=== PATIENT | male | born 1970 | race Caucasian/White ===

== ENCOUNTER 2018-11-24 11:38 | Outpatient (CLI) | payer BC, SELFPAY ==
[2018-11-24 12:40] LABS: Abs Immature Grans 0.01 k/cumm (0.0-0.09); Absolute Basophil Count 0.02 k/cumm (0.0-0.2); Absolute Eosinophil Count 0.03 k/cumm (0.0-0.7); Absolute Lymphocyte Count 0.85 k/cumm (1.2-3.4); Absolute Monocyte Count 0.54 k/cumm (0.11-0.7); Absolute Neutrophil Count 4.06 k/cumm (1.2-6.7); Basophils % 0.4; Eosinophils % 0.5; HCT 46.1 % (40.0-50.0); HGB 15.8 g/dL (13.5-17.5); Immature Grans % 0.2; Lymphocytes % 15.4; Mean Corp. HGB Concentration 34.3 g/dL (32.0-36.0); Mean Corpuscular Hemoglobin 30.8 pg (27.0-33.0); Mean Corpuscular Volume 89.9 fL (80-95); Mean Platelet Volume 9.1 fL (8.0-11.0); Monocytes % 9.8; Neutrophils % 73.7; Platelet Count 229 x1000/uL (130-400); RBC 5.13 m/cumm (4.50-6.00); RBC Distribution Width 12.1 % (11.8-14.1); White Blood Cell Count 5.51 k/cumm (4.4-10.8)
[2018-11-24 15:12] LABS: ALT 37 U/L (12-78); AST 12 U/L (15-37); Albumin 4.2 g/dL (3.4-5.0); Alkaline Phosphatase 49 U/L (46-116); Anion Gap 10.2 mmol/L (3-11); BUN 9 mg/dL (7-18); Bilirubin, Total 0.7 mg/dL (0.2-1.0); CO2 26.8 mmol/L (21.0-32.0); CREATININE 1.01 mg/dL (0.70-1.30); Calcium 9.3 mg/dL (8.5-10.1); Chloride 104 mmol/L (98-107); Glucose 98 mg/dL (70-100); Potassium 4.3 mmol/L (3.5-5.1); Sodium 141 mmol/L (136-145); TSH 1.57 uIU/mL (0.36-3.74); Total Protein 7.1 g/dL (6.4-8.2)
== END 2018-11-24 11:58 ==
PROVIDERS: PCP Family Medicine; Visit Provider Internal Medicine
DX: F41.9 Anxiety disorder, unspecified (principal); R50.9 Fever, unspecified
CPT/HCPCS: 36415; 80053; 84443; 85025

== ENCOUNTER 2021-03-13 02:59 | Outpatient (CLI) | payer BC, SELFPAY ==
[2021-03-13 13:06] LABS: Source Nasal/Nares
[2021-03-13 17:11] LABS: COVID-19 PCR Negative (Negative)
== END 2021-03-13 03:00 | disposition home or self-care (01) ==
LOC: LBO 02:59
PROVIDERS: PCP Nurse Practitioner; Visit Provider Surgery
DX: Z20.822 Contact with and (suspected) exposure to COVID-19 (principal)
CPT/HCPCS: 87635

== ENCOUNTER 2021-03-15 08:34 | Day surgery (SDC) | payer BC, SELFPAY ==
--- NOTE | 2021-03-14 14:07 | W.ANESPRE ---
General Info Date of Service Date Performed: 03/15/21 Height: 6 ft Weight: 118.047 kg Body Mass Index (BMI): 35.3 Surgical Procedure: Operation Date: 03/15/21 10:20 Proposed Procedures Side Surgeon p Colonoscopy Mariana Rivera MD Meds Allergies and Home Medications Allergies Allergy/AdvReac Type Severity Reaction Status Date / Time Penicillins Allergy Hives Verified 03/15/21 08:46 Current Visit Medications: Current Medications Generic Name Dose Route Start Last Admin Trade Name Freq PRN Reason Stop Dose Admin Ringer's Solution 1,000 mls @ 80 mls/hr 03/15/21 06:00 IV 04/13/21 23:59 INFUSION EDYTA IV Miscellaneous Supplies 1 each 03/15/21 06:00 Iv Access IV 04/13/21 23:59 DIRECTED EDYTA Sodium Chloride 0 ml 03/15/21 06:00 Normal Saline Flush 10 Ml Syr IV 04/13/21 23:59 PRN PRN Sodium Chloride 0 ml 03/15/21 06:00 Normal Saline 10 Ml Vial IJ 04/13/21 23:59 DIRECTED PRN Sterile Water 0 ml 03/15/21 06:00 Water,Injection,Sterile 10 Ml Vial IJ 04/13/21 23:59 DIRECTED PRN PFSH Active Problems Active Problems: Problem Status Onset Code Hypertension I10 Family history of colon cancer Z80.0 Screening for colon cancer Z12.11 Anxiety F41.9 Medical History Active Problem List Family history of colon cancer (Acute) Screening for colon cancer (Acute) Anxiety (Chronic) Medical History Vasectomy evaluation Tobacco Smoking/Tobacco Use Status: Never Passive smoking exposure: Yes Alcohol Alcohol Intake: current Alcohol intake frequency: 3 or more drinks per day Alcohol type: beer Substance Use Substance use: Never Substance use type: does not use Vital Signs and Lab Results Vital Signs Most Recent Vital Signs in EMR: Temp Pulse Resp BP Pulse Ox 36.3 C L 85 16 125/87 99 03/15/21 08:47 03/15/21 08:47 03/15/21 08:47 03/15/21 08:47 03/15/21 08:47 Lab Results Blood Type / Crossmatch: No Data to Display Complete Blood Count: No Data to Display Complete Metabolic Panel: No Data to Display Liver Function Panel: No Data to Display Coagulation Panel: No Data to Display Cardiac Panel: No Data to Display Arterial Blood Gas: No Data to Display Venous Blood Gas: No Data to Display Pancreas Panel: No Data to Display Thyroid Panel: No Data to Display Infectious Disease: Coronavirus (COVID-19)(PCR) Negative (Negative) 03/13/21 11:25 03/13/21 Coronavirus 2019 Source Nasal/Nares 03/13/21 11:25 03/13/21 Blood Cultures: No Data to Display Toxicology Panel: No Data to Display Anesthesia Assessment and Plan Anesthesia History Personal History: No History of Anesthesia Complications Family History: No Family History of Anesthesia Complications Exercise Tolerance Exercise Tolerance: Metabolic Equivalents>4 Cardiac & Pulmonary Exam Cardiac Exam: Normal S1/S2 Heart Sounds Pulmonary Exam: Clear Bilateral Breath Sounds Implantable Cardiac Device Does patient have a Pacemaker or an ICD?: No Airway Exam Known Difficult Airway: No Mallampati Class: 2 Mouth Opening: Normal (> 3cm) Thyromental Distance: Greater than 3 cm Neck Range of Motion: Full ROM Neck Circumference: Normal Teeth Condition: Normal Dentition ASA Classification ASA Score: ASA 2 Emergency Case?: No NPO Status NPO Status: NPO Clears >2 hours, Solids >8 hours Anesthesia Plan Resuscitation Status: Full Code Anesthesia Technique: General Anesthesia Airway Planned: Natural Airway Monitors Used: Standard Monitors Preoperative Comments:: 50 yo male for screening colo. Sig PMHx: HTN, anxiety, never smoker,
--- NOTE | 2021-03-15 06:41 | W.COLOREPORT ---
Colonoscopy Report Date of procedure: 03/15/21 Pre-op diagnosis general: Colon Cancer screening and family history Post-op diagnosis procedure note: same (and mild diverticulosis and small rectal polyp) Procedure: Colonoscopy with polypectomy Surgeon: Mariana Rivera Anesthesia Type: General:No Airway (Michael Rosas CRNA) Estimated blood loss (mL): 3 Pathology: other (rectal polyp) Complications: None Disposition: same day Indications: Mr. Haley is a pleasant 50-year-old gentleman who is here today to discuss his first screening colonoscopy. He does have a family history of colon cancer in his mother who was in her late 60s early 70s. He does not take any medication and has not had any cardiovascular disease that has been diagnosed. He does have high blood pressure today. He feels that that is due to stress as he is currently going through a divorce. We did discuss that he needs to cut down on his caffeine intake as well as his alcohol intake and this may also help his blood pressure. I did recommend that he check his blood pressure or by one of the blood pressure cuffs and check it for the next week. If it continues to be high then he needs to follow-up with his primary care physician. The colonoscopy and the prep were discussed with him in detail and he wishes to proceed Risks, benefits and complications have been reviewed. Complications include but are not limited to bleeding, pain, perforation, missed small lesion/polyp, sore throat, aspiration and adverse reaction to the medications. Questions were entertained and answered to their satisfaction and they wished to proceed. No guarantees were given or implied. Proceed with colonoscopy under sedation Prep: Miralax/Dulcolax Procedure Start Time: 09:43 Procedure End Time: 10:03 Retraction Time: 11 minutes Findings: small rectal polyp mild diverticulosis Procedure Description: After informed consent was obtained the patient was taken to the procedure room and placed in a left decubitous position. Monitors were applied and a time out was done. The patients name, date of , procedure, allergies to medications and metal in their body was reviewed. The patient was then sedated. Once sedated and comfortable a rectal exam was done. External exam was normal. Internal exam revealed a normal sphincter tone and no palpable masses. The prostate felt smooth. The scope was then introduced and retro-flexed. No internal hemorrhoids, polyps or masses were identified on retro-flexion. The scope was then advanced to the cecum without difficulty. The ileocecal vlave and appendiceal orifice were identified. The prep was good. The scope was then slowly retracted over 11 minutes back into the rectum. Polyps were removed with cold forceps in the rectum. There was mild descending and sigmoid diverticulosis noted. The scope was removed and the patient was woken up and taken back to Same day surgery in stable condition. The patient tolerated the procedure well and there were no immediate complications. Follow up: The patient should follow up in 5-10 years unless they develop changes in bowel habits or other new gastrointestinal complaints.
--- NOTE | 2021-03-15 06:42 | W.PM.DSUDISC ---
Discharge Plan Disposition Patient Disposition: HOME Condition: Good Discharge Details Reason For Visit: Colonoscopy Attending Provider: Mariana Rivera Primary Care Provider: Julia Velazco Discharge Instructions Instructions: Diverticulosis (DC) Additional Instructions: Findings: diverticulosis small polyp Follow up: will depend on the pathology results Please call if you develop: fevers >101.5 Nausea or Vomiting Abdominal pain that is not transient Rectal bleeding that is more then a tbsp A hard abdomen and inability to pass gas DAY SURGERY UNIT POST ENDOSCOPY INSTRUCTIONS Instructions for everyone who is given Anesthesia: For your safety, please do the following for the next 24 Hours: a. Do not drive or operate dangerous equipment b. Do not drink alcohol beverages or use any recreational drugs for the first 24 hours or while taking pain medications. The medications in your body may have a reaction that can be dangerous. c. Do not make any important decisions or sign any important papers 1. Generally there are no restrictions on your activity after a day or so has gone by, but you may feel a bit fatigued for a few days. 2. After you arrive home you may have a light meal and return to a normal diet as you can tolerate it without feeling sick to your stomach. 3. After surgery, you may feel pain or discomfort. This should be only transient, but if it persists please contact your doctor. 4. If there are any questions regarding the findings of your procedure, please feel free to contact your doctor. 6. If you are unable to contact your doctor with a problem, contact the hospital at [phone]. 7. Continue all your regular medications unless directed otherwise. I understand the above instructions and have no questions. Signature of Patient or Responsible Adult Escort Date/Time Name of Responsible Adult Escort Signature of Nurse Date/Time Activity:: Activity as Tolerated Diet:: As Tolerated Discharge Orders Discharge Orders: Discharge Order (Routine); Ordered 03/15/21 Ordered By: Mariana Rivera
[2021-03-15 08:47] VITALS: BP 125/87; PULSE 85; RESP 16; TEMP 36.3; O2SAT 99
[2021-03-15] MEDS: Lactated Ringers 1,000 ML 80 ML IV (09:10)
[2021-03-15 09:32] VITALS: BMI 35.3
--- NOTE | 2021-03-15 10:03 | BOWEL_PTH ---
PATIENT: Arcenio Haley LOC: [facility] U#:[id number] AGE/SX: 50/M ROOM: RE03/15/[address]: Mariana Rivera MD : 1970 BED: DIS: 03/15/2021 SPEC #: [id number] RECD: 03/15/21 12:42 STATUS: [place] REQ #: [id number] [place]: 03/15/21 10:[address]: Mariana Rivera DEPT: Surgical Specimen RECD BY: Kailey Garcia ENTERED: 03/15/21 12:43 SP TYPE: Bowel OTHR DR: Julia Velazco, PhD INPATIENT NURSING AIDE Tissues: 1 - BIOPSY BOWEL Procedures: GROSS AND MICRO LEVEL 4 Comments: [id number]
[2021-03-15 10:10] VITALS: BP 115/83; PULSE 74; RESP 16; TEMP 36.3; O2SAT 96
--- NOTE | 2021-03-15 10:18 | W.ANESPOSTOP ---
Postoperative Evaluation Date, Time and Location Date Performed: 03/15/21 Time Performed: 10:18 Patient Location: Day Surgery Unit Vital Signs Most Recent Imported Vital Signs: Most Recent Vital Signs Temp Pulse Resp BP Pulse Ox 36.3 C L 74 16 115/83 96 03/15/21 10:10 03/15/21 10:10 03/15/21 10:10 03/15/21 10:10 03/15/21 10:10 Pain Score Most Recent Pain Score: Most Recent Pain Score Pain Level 0 03/15/21 10:10 Assessment Mental Status: Awake (Alert & Oriented to Patient Baseline) Airway and Respiratory Function: Patent airway with normal (patient baseline) respiratory exam Cardiovascular Function: Hemodynamically Stable Hydration Status: Adequately Hydrated Nausea & Vomiting: No Nausea or Vomiting Pain: Pt. Denies Any Pain Peripheral Nerve Block: Patient did not receive a nerve block
[2021-03-15] MEDS: Hyoscyamine 0.125 MG SL/ORAL/CHEW SL (10:42)
[2021-03-15 10:43] VITALS: BP 124/87; PULSE 74; RESP 16; TEMP 36.7; O2SAT 99
== END 2021-03-15 11:26 | disposition home or self-care (01) ==
LOC: SUR 08:35
PROVIDERS: PCP Nurse Practitioner; Visit Provider Surgery
PROC: 0DJD8ZZ Inspection of Lower Intestinal Tract, Via Natural or Artificial Opening Endoscopic (ICD-10-PCS; CPT 45378; principal; 2021-03-15 10:15)
DX: Z12.11 Encounter for screening for malignant neoplasm of colon (principal); Z80.0 Family history of malignant neoplasm of digestive organs; D12.8 Benign neoplasm of rectum; K57.30 Diverticulosis of large intestine without perforation or abscess without bleeding
CPT/HCPCS: 45380; 88305; J2001; J3490

== ENCOUNTER 2023-10-09 17:36 | Outpatient (REF) | payer SELFPAY | END 2023-10-09 17:37 | disposition home or self-care (01) | LOC: LBN 17:36 | PROVIDERS: PCP Nurse Practitioner Family; Visit Provider Physician Assistant | DX: J02.9 Acute pharyngitis, unspecified (principal) | CPT/HCPCS: 87070 ==